=== PATIENT | male | born 1965 | race Caucasian/White ===

== ENCOUNTER 2017-08-17 09:19 | Day surgery (SDC) | payer BC ==
--- NOTE | 2017-08-15 14:49 | RADRPT ---
PROCEDURE: XR Chest. CLINICAL INDICATION: Cough. TECHNIQUE: Two views. Frontal and lateral. COMPARISON: 09/06/2016. FINDINGS: The lungs are clear. The heart size is normal. There is no pleural effusion. There is no pneumothorax. IMPRESSION: 1. Normal chest radiograph. 2. No change from 09/06/2016. RPTAT: QQ .Kojo Lewis MD, MD Date Time Electronically viewed and signed by .Kojo Lewis MD, on 08/15/2017 14:49 .R/
[~2017-08-17] VITALS: Ht 167.6 cm; Wt 83.6 kg
[2017-08-17] VITALS (10 sets, daily range): BP systolic 98–135; BP diastolic 68–86; PULSE 54–78; RESP 10–20; Ht 167.6 cm; Wt 83.6 kg
[~2017-08-17 09:19] MED LIST: MITOMYCIN 5 MG INJ OP ONE; NO MEDS
--- NOTE | 2017-08-17 10:23 | HPN ---
Date/Time of Note Date/Time of Note DATE: 08/17/17 TIME: 10:22 Interval H&P Admission Note Pt. seen H&P reviewed: No system changes BARRY CORTES MD Aug 17, 2017 10:23
[2017-08-17] MEDS ORDERED: TOBRAMYCIN/DEXAMETH 3.5 GM OPH OINT ONE (10:25)
[2017-08-17] MEDS ORDERED: LIDOCAINE 2%/EPI 30 ML INJ ONE (10:25)
[2017-08-17] MEDS ORDERED: BALANCED SALT SOLN 15 ML OPH IRRIG ONE (10:25)
[2017-08-17] MEDS ORDERED: LIDOCAINE 2%/EPI MPF (SDV) 20 ML VIAL INJ ONE (10:30)
[2017-08-17] MEDS ORDERED: TETRACAINE 0.5% 4 ML OPH RIGHT EYE ONE (10:40)
[2017-08-17] MEDS ORDERED: PHENYLephrine 10% 5 ML OPH OPER ONE (10:45)
[2017-08-17] MEDS ORDERED: TOBRAMYCIN/DEXAMETH 3.5 GM OPH OINT OPER ONE (11:03)
[2017-08-17] MEDS ORDERED: LIDOCAINE 2% (SDV) 5 ML INJ ONE (11:28)
[2017-08-17] MEDS ORDERED: PROPOFOL 20 ML ONE ×2 (11:28)
[2017-08-17] MEDS ORDERED: FENTAnyl 50 MCG/ML VIAL ONE (11:41)
--- NOTE | 2017-08-17 11:41 | SIPON ---
Date/Time of Note Date/Time of Note DATE: 08/17/17 TIME: 11:37 Operative Report Preoperative Diagnosis pterygium right eye Postoperative Diagnosis same Operation/Procedure Performed excisiom of pteryguium Surgeon see signature line business support assistant none Anesthesia: MAC Estimated blood loss: none Transfusion Required none Specimen none Grafts/Implants none Complications none BARRY CORTES MD Aug 17, 2017 11:41
[2017-08-17] MEDS: FENTAnyl 50 MCG/ML VIAL IV PRN ×2 (11:48→12:03)
[2017-08-17] MEDS ORDERED: morphine (1 MG/ML) 10ML SYRINGE IV PRN ×3 (12:00)
[2017-08-17] MEDS ORDERED: hydrALAzine 20 MG INJ IV PRN (12:00)
[2017-08-17] MEDS ORDERED: KETOROLAC 30 MG INJ IV PRN (12:00)
[2017-08-17] MEDS ORDERED: ONDANSETRON 4 MG INJ IV PRN (12:00)
[2017-08-17] MEDS ORDERED: FENTAnyl 50 MCG/ML VIAL IV PRN ×2 (12:00)
[2017-08-17] MEDS ORDERED: LABETALOL HCL 20MG INJ IV PRN (12:00)
--- NOTE | 2017-08-17 12:14 | OPR ---
DATE OF OPERATION: 08/17/2017 SURGEON: Ayanna Redman MD MINGLE OPERATOR: None. ANESTHESIOLOGIST: PREOPERATIVE DIAGNOSIS: Pterygium, right eye. POSTOPERATIVE DIAGNOSIS: Pterygium, right eye. OPERATION: Excision of pterygium, right eye; application of mitomycin C; closure of defect with con junctival advancement flaps. DESCRIPTION OF PROCEDURE: Following standard preparation and draping of the patient, a solid-blade lid speculum was placed for immobilization of the lids. A small amount of 2% Xylocaine with epineph rine was injected beneath the body of the pterygium so as to elevate it from the underlying sclerae. After adequate local anesthesia was obtained, Brittany scissors were simply used to make an incisi on along the edges of the pterygium, amputating the body approximately 1 cm posterior to the limbus. At the limbus, the major portion of the tissue was simply excised using sharp scissors. Using a rotating elena bur, all of the scar tissue on the cornea was removed down to clear cornea. At this point, bleeding points were secured with the heat cautery. Mitomycin C (0.2 mg/ml) was no w applied to the limbal regions for three minutes. After three minutes, the eye was copiously irrig ated with balanced salt solution. A peritomy was now performed both superiorly and inferiorly and r elaxing incisions made at approximately the 6 and 12 o'clock positions. The undermining conjunctiva was now pulled both superiorly and inferiorly so as to close the previously made defect from which the pterygium had been removed. Sutures of interrupted 8-0 Vicryl were used and a bite of the under lying sclera was taken so as to ensure adequate maintenance of the flaps in a non-movable position. Betadine 5% solution was placed on the eye, along with TobraDex ointment. A light pressure dressing was applied, and the patient returned to the recovery room in satisfactory condition. Dictated By: AYANNA MEDINA/IMTIAZ Conf#: [id number] DID#: [id number]
== END 2017-08-17 14:25 | disposition home or self-care (01) ==
LOC: SDS 09:19
PROVIDERS: ATTEND Ophthalmology
DX: H11.001 Unspecified pterygium of right eye (principal)
CPT/HCPCS: 65426; 71020; J1885; J3010; J9280

== ENCOUNTER → 2019-02-09 | Outpatient (CLI) | payer BC ==
--- NOTE | 2019-02-09 14:27 | RADRPT ---
Vent Rate: 77 bpm RR Interval: 0 msec [place] Interval: 148 msec QRS Duration: 90 msec QT Interval: 360 msec QTC Interval: 407 msec P-R-T [place]: 58 - 63 - 50 degrees Normal sinus rhythm Possible Left atrial enlargement Borderline ECG Electronically Signed By: Claudy Lucas
== END | disposition home or self-care (01) ==
LOC: RAD 09:56
PROVIDERS: ATTEND Internal Medicine
DX: R06.00 Dyspnea, unspecified (principal); R07.9 Chest pain, unspecified
CPT/HCPCS: 71046; 93005

== ENCOUNTER → 2019-02-13 | Outpatient (CLI) | payer BC | END | disposition home or self-care (01) | LOC: LAB 11:37 | PROVIDERS: ATTEND Internal Medicine | DX: R07.9 Chest pain, unspecified (principal); R06.00 Dyspnea, unspecified | CPT/HCPCS: 80053; 80061; 84443; 85025 ==